=== PATIENT | male | born 1955 | race Caucasian/White ===

== ENCOUNTER 2018-06-20 08:05 | Emergency (ER) | payer OTHER ==
[~2018-06-20] VITALS: Ht 165.1 cm; Wt 125.2 kg
[2018-06-20] MEDS ORDERED: SYNTHROID50 MCG (08:13)
== END 2018-06-20 10:57 | disposition home or self-care (01) ==
LOC: ER 08:05
DX: R30.0 Dysuria (principal); M54.5 Low back pain